=== PATIENT | male | born 1975 | race Two or more races ===

== ENCOUNTER 2024-09-13 08:56 | Outpatient (RCR) | payer OTHER, SELFPAY ==
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
== END 2024-10-01 23:59 | disposition home or self-care (01) ==
LOC: SCTC 08:56
PROVIDERS: PCP Family Medicine; Referring Provider Family Medicine; Visit Provider Internal Medicine Hematology & Oncology
DX: C71.9 Malignant neoplasm of brain, unspecified (principal)
CPT/HCPCS: 99213; G0463